=== PATIENT | female | born 1935 | race Caucasian/White ===

== ENCOUNTER → 2017-03-24 | Outpatient (CLI) | payer MEDICARE, OTHER ==
[~2017-03-24] MED LIST: AC325T PO; APIX5TAB2 PO; ASP81TEC PO; CRAN1TAB PO; DLT120CCR PO; ENAL10TA PO; ENLP10T; ESTR0.3T PO; METO-272 PO; METO100T5 PO; METO50TA7; MULT-608 PO; NF-ESOM40C PO; OXYC-12 PO; SMV20T PO; [UNRECOGNIZED DRUG - CODE]
--- NOTE | 2017-03-25 11:19 | ECHOCARDIOGRAPHY REPORT ---
DATE OF SERVICE: 03/24/2017 REFERRING PHYSICIAN: Dr. Blanca MEASUREMENT: LVID end diastolic 4.3, IVS thickness 0.9, LVPW thickness 1.1, left atrial diameter 4.0, ejection fraction 60%. FINDINGS: 1. Technical quality is good. 2. The left ventricle is normal in size with normal contractility, systolic function appeared to be normal, estimated ejection fraction 60%. 3. The left atrium is upper normal limit in size. No clot or thrombus were seen within the left atrium. 4. The right atrium and right ventricle are normal in size. No clot or thrombus were seen within the right side. 5. Mitral valve is calcified with moderate mitral regurgitation noted by color Doppler flow. No mitral valve prolapse. No mitral valve stenosis. 6. Aortic valve is trileaflet with normal opening and closing pattern. No significant aortic stenosis or regurgitation was seen. 7. Tricuspid valve is normal in morphology with moderate tricuspid regurgitation noted by color Doppler flow. Doppler across tricuspid valve estimated pulmonary artery pressure of 34+ right atrial pressure. 8. Pulmonic valve is functioning normally. 9. No pericardial effusion. CONCLUSION: 1. Normal left ventricular size and systolic function, estimated ejection fraction 60%. 2. Left atrium is in the upper normal limit in size. 3. Moderate mitral and tricuspid regurgitation. 4. Estimated pulmonary artery pressure of 40 mmHg. Job ID: [id number] DocumentID: [id number] Dictated Date: 03/25/2017 08:09:18 [employer] [place] Operator Date: 03/25/2017 08:19:52 Dictated By: JYOTI SOMMER MD
== END ==
LOC: CARD 10:35
PROVIDERS: ATTEND Physician Assistant
DX: I10 Essential (primary) hypertension (principal); E78.2 Mixed hyperlipidemia; I48.0 Paroxysmal atrial fibrillation; I47.1 Supraventricular tachycardia
CPT/HCPCS: 93306

== ENCOUNTER 2017-05-21 12:54 | Outpatient (CLI) | payer MEDICARE, OTHER ==
[~2017-05-21] VITALS: Ht 175.3 cm; Wt 99.1 kg
[2017-05-21] MEDS ORDERED: METO-352 PO (13:10)
[2017-05-21] MEDS ORDERED: ESTR0.3T PO (13:10)
[2017-05-21] MEDS ORDERED: DILT120C PO (13:10)
[2017-05-21] MEDS ORDERED: APIX5TAB PO (13:10)
[2017-05-21 13:15] VITALS: BP 126/71
== END 2017-05-21 14:00 | disposition home or self-care (01) ==
LOC: PREOP 12:54
PROVIDERS: ATTEND Orthopaedic Surgery
DX: Z01.810 Encounter for preprocedural cardiovascular examination (principal); Z11.2 Encounter for screening for other bacterial diseases; M94.262 Chondromalacia, left knee
CPT/HCPCS: 87081; 93005

== ENCOUNTER 2017-05-27 10:40 | Day surgery (SDC) | payer MEDICARE, OTHER ==
--- NOTE | 2017-05-18 13:07 | HISTORY AND PHYSICAL ---
DATE OF ADMISSION: 05/27/2017 This will be for outpatient surgery for left knee arthroscopy. HISTORY: The patient is an 81-year-old female with complaints of left knee pain, catching, locking and swelling. She reports pain with activities. She has undergone treatment with injections without relief. She reports activity limitations because of the knee. Due to functional impairment and failure to improve with conservative measures, the patient has elected to proceed with surgical intervention. REVIEW OF SYSTEMS: No chest pain, no shortness of breath. No dysuria. PRIMARY CARE PROVIDER: Dr. Blanca. MEDICATIONS: 1. Premarin 2. Simvastatin 3. Toprol 4. Eliquis 5. Cardizem 6. Ambien 7. Nexium 8. Meclizine DRUG ALLERGIES: No known drug allergies. SOCIAL HISTORY: The patient denies alcohol and tobacco use. PAST SURGERIES: Total knee arthroplasty. PAST MEDICAL HISTORY: Significant for: 1. Hypercholesterolemia. 2. Hypertension. PHYSICAL EXAMINATION: The patient's well-developed, well-nourished, in no acute distress. HEENT: Normocephalic, atraumatic. Pupils are equal, round, and reactive to light. OROPHARYNX: Clear. NECK: Supple. No lymphadenopathy. LUNGS: Clear to auscultation bilaterally. HEART: Regular rate and rhythm. ABDOMEN: Soft, nontender, nondistended. EXTREMITY EXAM: The left knee demonstrates a moderate effusion. She is tender along her medial joint line and has pain medially with Nolvia's. She has negative Sia. Negative anterior posterior drawer. No varus valgus laxity. Negative pivot shift. Range of motion is 0/2/130. RADIOLOGY: Radiographs reveal moderate medial joint space narrowing. 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 PLAN: Left knee arthroscopy, chondroplasty and partial meniscectomy. The risks, benefits, options, ramifications and recovery have been discussed at length with the patient. She understands and wishes to proceed. Job ID: [id number] Dictated Date: 05/18/2017 11:30:03 Gemologist Date: 05/18/2017 12:53:58/tbkaylah
[~2017-05-27] VITALS: Ht 175.3 cm; Wt 99.1 kg
[~2017-05-27 10:40] MED LIST changes: +APIX5TAB PO; +DILT120C PO; +METO-352 PO
[2017-05-27] MEDS ORDERED: ceFAZolin 1,000 MG (ANCEF) VIAL ONE (10:41)
[2017-05-27] MEDS ORDERED: NS (IVPB) 50 ML ONE (10:41)
--- OUTSIDE RECORDS SUMMARY | 2017-05-27 10:47 | XMS REPORT | Continuity of Care Document ---
Author Author [facility] Organization [facility] Address Unknown Phone Unavailable Allergies Active Description Code Type Severity Reaction Onset Reported/Identified Relationship to Patient Clinical Status Yes NKANo Known Allergies NKA Miscellaneous Allergy Mild N/A 01/11/2008 Yes No Known Drug Allergies [id number] Drug Allergy Unknown N/ A 05/21/2017 Medications Problems Date Dx Coded Attending Type Code Diagnosis Diagnosed By 04/06/2014 NIRMAL CISNEROS DO Ot 272.4 HYPERLIPIDEMIA NEC/NOS 04/06/2014 NIRMAL CISNEROS DO Ot 401.9 HYPERTENSION NOS 04/06/2014 NIRMAL CISNEROS DO Ot 427.31 ATRIAL FIBRILLATION 11/06/2014 MICHAEL CARSON DO S Ot V76.12 08/01/2015 MICHAEL CARSON DO S Ot V76.12 08/01/2015 ANNIE HOSKINS Ot 272.4 08/01/2015 ANNIE HOSKINS Ot 401.9 08/01/2015 ANNIE HOSKINS Ot 427.0 08/01/2015 ANNIE HOSKINS Ot 427.31 08/01/2015 ANNIE HOSKINS Ot 401.9 08/01/2015 ANNIE HOSKINS Ot 427.0 08/01/2015 ANNIE HOSKINS K Ot 427.31 08/01/2015 ALLI RICKS S Ot V76.12 11/14/2015 ALLI RICKS S Ot Z12.31 12/04/2015 ALLI RICKS S Ot V76.12 12/04/2015 ANNIE HOSKINS Ot 272.4 12/04/2015 ANNIE HOSKINS Ot 401.9 12/04/2015 ANNIE HOSKINS Ot 427.0 12/04/2015 ANNIE HOSKINS Ot 427.31 12/04/2015 ISABELLA PA, ANNIE K Ot 401.9 12/04/2015 ISABELLA PA, ANNIE K Ot 427.0 12/04/2015 ISABELLA PA, ANNIE K Ot 427.31 12/04/2015 ALLI RICKS S Ot V76.12 12/04/2015 ANDREWECH DO, S Ot Z12.31 08/15/2016 [facility] DO, S Ot V76.12 OTH SCREEN MAMMO-MALIGN NEOPLASM OF CYRUS 08/15/2016 ISABELLA PA, ANNIE K Ot 272.4 HYPERLIPIDEMIA NEC/NOS 08/15/2016 ISABELLA PA, ANNIE K Ot 401.9 HYPERTENSION NOS 08/15/2016 ISABELLA PA, ANNIE K Ot 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 08/15/2016 ISABELLA PA, ANNIE K Ot 427.31 ATRIAL FIBRILLATION 08/15/2016 ISABELLA PA, ANNIE K Ot 401.9 HYPERTENSION NOS 08/15/2016 ISABELLA PA, ANNIE K Ot 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 08/15/2016 ISABELLA PA, ANNIE K Ot 427.31 ATRIAL FIBRILLATION 08/15/2016 ALLI DO, S Ot V76.12 OTH SCREEN MAMMO-MALIGN NEOPLASM OF CYRUS 08/15/2016 [facility] DO, S Ot Z12.31 ENCNTR SCREEN MAMMOGRAM FOR MALIGNANT NE 10/20/2016 Ot V76.12 OTH SCREEN MAMMO-MALIGN NEOPLASM OF CYRUS 10/20/2016 Ot V76.12 OTH SCREEN MAMMO-MALIGN NEOPLASM OF CYRUS 10/20/2016 [facility] DO S Ot V76.12 OTH SCREEN MAMMO-MALIGN NEOPLASM OF CYRUS 10/20/2016 ISABELLA PA, ANNIE K Ot 272.4 HYPERLIPIDEMIA NEC/NOS 10/20/2016 ISABELLA PA, ANNIE K Ot 401.9 HYPERTENSION NOS 10/20/2016 ISABELLA PA, ANNIE K Ot 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 10/20/2016 ISABELLA PA, ANNIE K Ot 427.31 ATRIAL FIBRILLATION 10/20/2016 ISABELLA PA, ANNIE K Ot 401.9 HYPERTENSION NOS 10/20/2016 ANNIE HOSKINS Ot 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 10/20/2016 ANNIE HOSKINS Ot 427.31 ATRIAL FIBRILLATION 10/20/2016 FENECH DO, S Ot V76.12 OTH SCREEN MAMMO-MALIGN NEOPLASM OF CYRUS 10/20/2016 FENECH DO, S Ot Z12.31 ENCNTR SCREEN MAMMOGRAM FOR MALIGNANT NE 10/20/2016 FENECH DO, S Ot Z12.31 ENCNTR SCREEN MAMMOGRAM FOR MALIGNANT NE 10/21/2016 FENECH DO, S Ot Z12.31 ENCNTR SCREEN MAMMOGRAM FOR MALIGNANT NE 10/21/2016 FENECH DO, S Ot Z12.31 ENCNTR SCREEN MAMMOGRAM FOR MALIGNANT NE 11/13/2016 FENECH DO, S Ot Z12.31 ENCNTR SCREEN MAMMOGRAM FOR MALIGNANT NE 03/26/2017 ANNIE HOSKINS Ot E78.2 MIXED HYPERLIPIDEMIA 03/26/2017 ANNIE HOSKINS Ot I10 ESSENTIAL (PRIMARY) HYPERTENSION 03/26/2017 ANNIE HOSKINS Ot I47.1 SUPRAVENTRICULAR TACHYCARDIA 03/26/2017 ANNIE HOSKINS Ot I48.0 PAROXYSMAL ATRIAL FIBRILLATION 04/27/2017 ANNIE HOSKINS Ot E78.2 MIXED HYPERLIPIDEMIA 04/27/2017 ANNIE HOSKINS Ot I10 ESSENTIAL (PRIMARY) HYPERTENSION 04/27/2017 ANNIE HOSKINS Ot I47.1 SUPRAVENTRICULAR TACHYCARDIA 04/27/2017 ANNIE HOSKINS Ot I48.0 PAROXYSMAL ATRIAL FIBRILLATION 05/04/2017 ANNIE HOSKINS Ot E78.2 MIXED HYPERLIPIDEMIA 05/04/2017 ANNIE HOSKINS Ot I10 ESSENTIAL (PRIMARY) HYPERTENSION 05/04/2017 ANNIE HOSKINS Ot I47.1 SUPRAVENTRICULAR TACHYCARDIA 05/04/2017 ANNIE HOSKINS K Ot I48.0 PAROXYSMAL ATRIAL FIBRILLATION Procedures Results Test Result Range Methicillin resistant Staphylococcus aureus (MRSA) screening culture - 13:50 Methicillin resistant Staphylococcus aureus (MRSA) screening culture NEG NRG Encounters ACCT No. Visit Date/Time Discharge Status Pt. Type Provider Facility Loc./Unit Complaint [id number] 05/21/2017 12:54:00 2016 14:00:00 DIS Outpatient MICHAEL DESHPANDE MD [facility] PREOP LEFT KNEE CHONDROMALACIA [id number] 10/17/2015 15:32:00 2014 23:59:59 CLS Outpatient MICHAEL CARSON DO [facility] RAD SCREENING [id number] 10/11/2014 10:45:00 2013 23:59:59 CLS Outpatient MICHAEL CARSON DO [facility] RAD SCREENING [id number] 05/15/2014 07:29:00 2013 23:59:59 CLS Outpatient ANNIE HOSKINS [facility] CARD AFIB,HTN,HLP,PAT [id number] 05/11/2014 07:15:00 2013 23:59:59 CLS Outpatient ANNIE HOSKINS [facility] CARD AFIB,HTN,HLP [id number] 04/05/2014 14:52:00 2013 11:20:00 DIS Inpatient NIRMAL CISNEROS DO [facility] CSD QUICK AFIB [id number] 10/10/2013 08:54:00 2012 23:59:59 CLS Outpatient MICHAEL CARSON DO [facility] RAD SCREENING [id number] 05/27/2017 10:15:00 PEN Preadmit MICHAEL DESHPANDE MD [facility] SDC LEFT KNEE CHONDROMALACIA [id number] 03/24/2017 10:35:00 ACT Outpatient ANNIE NEFF [facility] CARD HTN,HYPERLIPIDEMIA [id number] 10/20/2016 15:03:00 ACT Outpatient MICHAEL CARSON DO [facility] RAD SCREENING [id number] 10/20/2016 15:03:00 Document Registration [id number] 10/04/2012 09:18:00 Document Registration [id number] 10/03/2011 08:40:00 Document Registration
[2017-05-27 10:55] VITALS: BP 145/82
[2017-05-27] MEDS ORDERED: LACTATED RINGERS 1,000 ML IV PRN (11:09)
[2017-05-27] MEDS ORDERED: ceFAZolin 1 GM/NS 50 ML IVPB IV ONE ×2 (11:15)
[2017-05-27] MEDS ORDERED: CATHETER FLUSH 10 ML SYR IV PRN (11:15)
--- NOTE | 2017-05-27 11:38 | Progress Note-Pre Operative ---
Pre-Operative Progress Note H&P Reviewed The H&P was reviewed, patient examined and no changes noted. Date Seen by Provider: May 27, 2017 Time Seen by Provider: 11:37 Date H&P Reviewed: May 27, 2017 Time H&P Reviewed: 11:37 Pre-Operative Diagnosis: left knee chondromalacia and medial meniscal tear MICHAEL DESHPANDE MD May 27, 2017 11:38
--- NOTE | 2017-05-27 11:39 | Progress Note-Post Operative ---
Post-Operative Progess Note Surgeon (s)/Furniture Shampooer (s) Surgeon MICHAEL DESHPANDE MD Furniture Shampooer: Micheal Landeros Pre-Operative Diagnosis left knee chondromalacia and medial meniscal tear Post-Operative Diagnosis left knee chondromalacia of medial and lateral tibial plateaus and medial and lateral meniscal tears Procedure & Operative Findings Date of Procedure 05/27/17 Procedure Performed/Findings left knee arthroscopic chondroplasty of the medial and lateral tibial plateaus and partial medial and lateral meniscectomies Anesthesia Type GETA Estimated Blood Loss Estimated blood loss (mL): minimal Specimens/Packing Specimens Removed none Packing: none MICHAEL DESHPANDE MD May 27, 2017 11:39
[2017-05-27] MEDS ORDERED: BUPIVACAINE 0.25% 30 ML (SENSORCAINE) VIAL ONE (12:25)
[2017-05-27] MEDS ORDERED: morphine PF (DURAMORPH) 10 MG/10 ML AMP ONE (12:25)
[2017-05-27] MEDS ORDERED: LACTATED RINGERS 1,000 ML IV ONE (12:39)
[2017-05-27] MEDS ORDERED: ONDANSETRON 4 MG/2 ML (SDV) Z0FRAN ONE (12:39)
[2017-05-27] MEDS ORDERED: proPOfol 200 MG/20 ML (DIPRIVAN) VIAL IV ONE (12:39)
[2017-05-27] MEDS ORDERED: LIDOCAINE PF 2% 5 ML (XYLOCAINE) VIAL ONE (12:39)
[2017-05-27] MEDS ORDERED: SEVOFLURANE (ULTANE) 15 ML INHAL SOLN ONE (12:39)
[2017-05-27] MEDS ORDERED: fentaNYL INJECTION 100 MCG/2 ML AMP ONE (12:40)
[2017-05-27] MEDS ORDERED: MIDAZOLAM 2 MG/2 ML (VERSED) VIAL ONE (12:40)
[2017-05-27] MEDS ORDERED: HYDROcodone/APAP 7.5 MG/325 MG (LORTAB, LORCET PLUS) TABLET PO PRN (13:00)
[2017-05-27] MEDS ORDERED: HYDR-3816 PO (13:36)
[2017-05-27] MEDS ORDERED: morphine INJ 10 MG/ML 1ML (SYR OR VIAL) IVP PRN (13:45)
[2017-05-27] MEDS ORDERED: ONDANSETRON 4 MG/2 ML (SDV) Z0FRAN IVP PRN (13:45)
[2017-05-27 14:30] VITALS: BP 141/85
[2017-05-27 15:00] VITALS: BP 122/66
[2017-05-27 15:20] VITALS: BP 122/66
[2017-05-27 15:30] VITALS: BP 155/81
--- NOTE | 2017-05-27 15:35 | Physical Therapy Ortho Eval ---
PT Orthopedic Evaluation Type of Surgery Knee Scope left knee Prior Level of Function Current Living Status: Spouse Locomotion (Upon Admit): Independent Established Durable Medical Eq: Front Wheeled Walker Subjective Subjective Patient has pain of 1-2/10 in left knee. She is already dressed and has started ambulating toward the bathroom from her bed with her when PT enters the room. Entry Into Home: Stairs Without Railing Steps Into Home: 3 Objective Objective left knee flexion 80 degrees, extension +8 degrees Motor Control Motor Control: Motor Control WNL Strength NT Transfer Transfers (B, C, W/C) (FIM): 5 Gait Gait Assistive Device: FWW Weight Bearing Restriction: Weight Bearing/Tolerated Location Restriction: L LE Gait (FIM): 2 Distance: 100' Gait Level of Assist: 5 Summary/Comments slow but steady, flexed left knee. Patient also went up and down 1 step using a rolling walker with CGA. Treatment Rendered Treatment: Therapeutic Exercises, Gait Train, Step Train Exercise Instruction: Quad Sets, Heel Slides, Ankle Pumps Assessment/Goals Goal Time Frame: 1 Visit Plan Treatment Plan: Discharge PT/Family Agrees to Plan: Yes Time Time In: 1515 Time Out: 1530 Total Billed Treatment Time: 15 Billed Treatment Time 1 visit EVL 15' Yes PT/OT Therapy GCodes Therapy Functional Limitation: Physical Therapy Test(s)/Tool used to determine: Level of Assistance Scale Functional Limitation-Current Charge Code: MOBCUR Modifier: CI Functional Limitation-Goal Charge Code: MOBGOAL Modifier: CI Functional Limitation-D/C Charge Codes: MOBDC Modifier: CI LIT BELL PT May 27, 2017 15:35
--- NOTE | 2017-05-29 08:34 | OPERATIVE REPORT ---
PROCEDURE PHYSICIAN: MICHAEL DESHPANDE DATE OF PROCEDURE: 05/27/2017 PREOPERATIVE DIAGNOSIS: 1. Left knee medial meniscal tear. 2. Left knee chondromalacia of the medial femoral condyle. POSTOPERATIVE DIAGNOSES: 1. Left knee lateral meniscal tear. 2. 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 3. Left knee chondromalacia of the lateral tibial plateau. PROCEDURE: 1. Left knee arthroscopic partial medial meniscectomy. 2. Left knee arthroscopic partial lateral meniscectomy. 3. Left knee arthroscopic chondroplasty of the medial tibial plateau. 4. Left knee arthroscopic chondroplasty of the lateral tibial plateau. SURGEON: Linda SYS DIR: Micheal Landeros who assisted throughout the procedure and closed the incisions. ANESTHESIA: General endotracheal by Phill Dotson CRNA. TOURNIQUET TIME: Not applicable. ESTIMATED BLOOD LOSS: Minimal. DRAINS: None. COMPLICATIONS: None. POSTOPERATIVE PLAN: Postoperative protocol. The patient was transported to the recovery room, awake, in stable condition. STATEMENT OF MEDICAL NECESSITY: The patient is an 81-year-old female with progressively worsening left medial knee pain, catching, locking and swelling. She is tender along her medial joint line. She had pain medially with Nolvia's. Radiographs revealed mild medial joint space narrowing with medial meniscal tear with associated chondromalacia and due to functional impairment, the patient elected to proceed with surgical intervention for functional impairment and failure with conservative measures, the patient elected to proceed with surgical intervention. Examination under anesthesia revealed range of motion of 0/2/130 with negative Sia, negative pivot shift. Negative anterior posterior drawer. No varus valgus laxity. Arthroscopic findings demonstrated grade 4 chondral loss on the medial trochlear groove in a 10 x 15 area. The patella demonstrated diffuse grade 2 to 3 chondral loss centrally in a 10 x 10 area with no unstable chondral flaps. The lateral compartment demonstrated a tear of the body of the meniscus around approximately 30% of the body. With associated grade 2 chondral flaps in tibial plateau in a 10 x 10 area. The ACL and PCL were intact. The medial compartment demonstrated a tear of the posterior horn and body of the meniscus involving approximately one half of the posterior horn and body. In addition, there was grade 3 chondral flaps over the central portion of tibial plateau in a 10 x 10 area. PROCEDURE: After risks and benefits of the procedure were discussed and questions were answered, informed consent signed and placed on chart. The operative site was confirmed in the preoperative holding area and initialed by the surgeon. The patient was then transported to the operating room where after adequate levels of general endotracheal anesthetic were obtained a timeout was called confirming the operative site. Examination under anesthesia was performed with the above findings noted. The left lower extremity was prepped and draped usual sterile fashion. The knee joint was injected with 60 mL of fluid and a standard inferolateral portal was placed for the arthroscope and under direct visualization an inferomedial port was created and the menisci cruciate was carefully probed with the above findings noted. The unstable chondral flaps on the lateral tibial plateau were debrided with a shaver back to a stable edge. The body of the lateral meniscus was debrided with a biter and with a shaver, removing approximately 1/3rd of the body. This was carefully probed with no further tearing or instability noted. The scope was redirected to the medial compartment where the unstable chondral flaps of the medial tibial plateau were debrided with a shaver, back to a stable edge. The posterior horn and body of the medial meniscus were debrided with a biter and a shaver, removing approximately one half of the posterior horn and body. This was carefully probed with no further tearing or instability noted. The knee was copiously irrigated. The portal sites closed with 3-0 nylon in a simple interrupted fashion. The knee was injected with Duramorph. The portal sites were infiltrated with plain Marcaine. A soft dressing was applied and the patient was transported to the recovery room, awake, in stable condition. Job ID: [id number] Dictated Date: 05/27/2017 13:42:08 Band Shover Date: 05/29/2017 08:20:11 / sweetie
== END 2017-05-27 15:34 | disposition home or self-care (01) ==
LOC: SDC 10:40
PROVIDERS: ATTEND Orthopaedic Surgery
DX: M23.8X2 Other internal derangements of left knee (principal); M94.262 Chondromalacia, left knee; I10 Essential (primary) hypertension; E78.00 Pure hypercholesterolemia, unspecified; I48.91 Unspecified atrial fibrillation; Z79.899 Other long term (current) drug therapy; E66.9 Obesity, unspecified; Z68.32 Body mass index [BMI] 32.0-32.9, adult

== ENCOUNTER → 2017-11-02 | Outpatient (CLI) | payer MEDICARE, OTHER ==
[~2017-11-02] MED LIST changes: +DILT-27 PO; -DILT120C PO; +HYDR-3816 PO
--- NOTE | 2017-11-03 11:42 | Diagnostic Imaging Report ---
EXAMINATION: Bilateral screening mammogram 2D views with tomosynthesis. The current study was also evaluated with a Computer Aided Detection (CAD) system. INDICATION: Screening. PERSONAL HISTORY: No current complaints stated on the questionnaire. COMPARISON: 10/20/2016. FINDINGS: The breasts are composed of heterogeneously dense parenchyma which may decrease mammographic sensitivity. There are benign-appearing calcifications seen. Allowing for technique and positional differences, no suspicious change is seen. IMPRESSION: Dense breasts with no definite change. ACR BI-RADS Category 2: Benign findings. Result letter will be mailed to the patient. Note: At least 10% of breast cancer is not imaged by mammography. Dictated by: Dictated on workstation # [id number]
== END ==
LOC: RAD 14:15
PROVIDERS: ATTEND Obstetrics & Gynecology
DX: Z12.31 Encounter for screening mammogram for malignant neoplasm of breast (principal)
CPT/HCPCS: 77067

== ENCOUNTER → 2017-11-23 | Outpatient (CLI) | payer MEDICARE, OTHER ==
[~2017-11-23] MED LIST changes: +CRAN1CAP9 PO; +MULT1CAP27 PO; +REGADENOSON 0.4 MG/5 ML SYR (LEXISCAN) IV ONE; +SIMV20TA3 PO
[2017-11-23] MEDS: CATHETER FLUSH 10 ML SYR IV PRN ×2 (07:49→09:02)
[2017-11-23 09:00] VITALS: BP 161/86
--- NOTE | 2017-11-23 19:33 | STRESS TEST ---
DATE OF SERVICE: 11/23/2017 LEXISCAN MYOVIEW STRESS TEST REPORT REFERRING PHYSICIAN: . Baseline heart rate is 85, baseline blood pressure 160/80. Baseline EKG is atrial fibrillation with no significant ischemia. In summary, the patient was injected with 10.95 mCi of technetium-99 Myoview and the resting images were obtained. Then, the patient received 0.4 mg of Lexiscan followed by 30.8 mCi of technetium-99 Myoview. Throughout the test, there were no EKG changes. The resting and stress images were reviewed and compared in the short axis, horizontal long axis, and vertical long axis views. Review of the images showed breast attenuation with decreased uptake at the base of the anterior wall and anterolateral wall with no significant reversibility. SSS is 7, SDS 3, TID value 1.01. On the gated images, the left ventricle appeared to be normal size with normal contractility. Calculated ejection is fraction 71%. CONCLUSION: 1. The patient tolerated Lexiscan well. 2. Baseline atrial fibrillation persisted throughout test. 3. Breast attenuation with typical female pattern with no significant ischemia or infarction on SPECT images. 4. Normal left ventricular size with normal contractility. Calculated ejection fraction 71%, gated images are unreliable due to underlying atrial fibrillation. Job ID: [id number] DocumentID: [id number] Dictated Date: 11/23/2017 12:21:21 Ice Hockey Coach Date: 11/23/2017 18:22:14 Dictated By: JYOTI SOMMER MD
== END ==
LOC: CARD 07:20
PROVIDERS: ATTEND Internal Medicine Cardiovascular Disease
DX: I10 Essential (primary) hypertension (principal); E78.2 Mixed hyperlipidemia; I48.0 Paroxysmal atrial fibrillation; I47.1 Supraventricular tachycardia
CPT/HCPCS: 78452; 93017

== ENCOUNTER 2017-11-25 05:37 | Outpatient (CLI) | payer MEDICARE, OTHER ==
[~2017-11-25] VITALS: Ht 175.3 cm; Wt 99.1 kg
[~2017-11-25 05:37] MED LIST changes: -CRAN1CAP9 PO; -MULT1CAP27 PO; -REGADENOSON 0.4 MG/5 ML SYR (LEXISCAN) IV ONE; -SIMV20TA3 PO
[2017-11-25] MEDS ORDERED: SIMV20TA3 PO (09:53)
[2017-11-25] MEDS ORDERED: NF-ESOM40C PO (09:53)
[2017-11-25] MEDS ORDERED: CRAN1CAP9 PO (09:53)
[2017-11-25] MEDS ORDERED: MULT1CAP27 PO (09:53)
== END 2017-11-25 09:59 ==
LOC: PREOP 05:37
PROVIDERS: ATTEND Surgery
DX: Z01.818 Encounter for other preprocedural examination (principal); Z12.11 Encounter for screening for malignant neoplasm of colon

== ENCOUNTER → 2018-06-16 | Outpatient (CLI) | payer MEDICARE, OTHER ==
[~2018-06-16] MED LIST changes: +CRAN1CAP9 PO; +HYDR-34 PO; -HYDR-3816 PO; +MULT1CAP27 PO; +SIMV20TA3 PO
--- NOTE | 2018-06-16 10:55 | Diagnostic Imaging Report ---
PROCEDURE: MRI lumbar spine. TECHNIQUE: Multiplanar, multisequence MRI of the lumbar spine was performed without contrast. INDICATION: Low back pain. COMPARISON: No prior studies are available for comparison. FINDINGS: Curvature and alignment of the lumbar spine is normal. The vertebral body heights are maintained. The marrow signal intensity is unremarkable. No acute compression fracture or geographic marrow lesion is seen. There is some desiccation of the discs throughout the lumbar spine compatible with degenerative disc disease. No significant disc space narrowing is seen. There is very mild disc space narrowing L3-4 and L2-3 levels. The conus is unremarkable at the L1-2 level. T12-L1: No central canal or neural foraminal stenosis is identified. L1-2: Unremarkable. L2-3: Mild annular bulging is seen. Central canal remains patent. No neural foraminal stenosis is seen. There are degenerative changes to the facets. L3-4: Degenerative facet changes and mild broad-based disc/osteophyte complex is present. However, no central canal stenosis is seen. There is mild left neural foraminal stenosis. Right neural foramen is patent. L4-5: Bulky hypertrophic facet changes are seen. Central canal is patent. No neural foraminal stenosis is identified. L5-S1: Central canal is widely patent. There is moderate right neural foraminal stenosis. Left neural foramen is patent. The paraspinous tissues are unremarkable. IMPRESSION: Generalized lumbar spondylosis and facet arthropathy with mild to moderate neural foraminal narrowing described level by level above. No central canal stenosis is seen. No acute compression fracture is identified. Dictated by: Dictated on workstation # [id number]
== END ==
LOC: RAD 09:43
PROVIDERS: ATTEND Orthopaedic Surgery
DX: M51.16 Intervertebral disc disorders with radiculopathy, lumbar region (principal); M47.26 Other spondylosis with radiculopathy, lumbar region; M46.86 Other specified inflammatory spondylopathies, lumbar region; M99.73 Connective tissue and disc stenosis of intervertebral foramina of lumbar region
CPT/HCPCS: 72148

== ENCOUNTER → 2018-11-05 | Outpatient (CLI) | payer MEDICARE, OTHER ==
--- NOTE | 2018-11-05 15:59 | Diagnostic Imaging Report ---
INDICATION: Routine screening. COMPARISON: Prior mammograms from 11/02/2017 and 10/20/2016. EXAMINATION: 2D and 3D bilateral screening mammography was performed with CAD. The current study was also evaluated with a Computer Aided Detection (CAD) system. FINDINGS: Both breasts remain heterogeneously dense, limiting the sensitivity of mammography. The parenchymal pattern appears stable. Benign nodule in the central left breast is stable. There are scattered benign calcifications. No new mass or malignant appearing microcalcifications are seen. The axillae are unremarkable. IMPRESSION: No mammographic features suspicious for malignancy are identified. ACR BI-RADS Category 2: Benign findings. Result letter will be mailed to the patient. Note: At least 10% of breast cancer is not imaged by mammography. Dictated on workstation # [id number]
== END ==
LOC: RAD 08:18
PROVIDERS: ATTEND Obstetrics & Gynecology
DX: Z12.31 Encounter for screening mammogram for malignant neoplasm of breast (principal)
CPT/HCPCS: 77067

== ENCOUNTER 2019-02-15 09:41 | Outpatient (CLI) | payer MEDICARE, OTHER ==
[~2019-02-15] VITALS: Ht 175.3 cm; Wt 102.1 kg
[2019-02-15 09:59] VITALS: BP 140/71
== END 2019-02-15 10:43 | disposition home or self-care (01) ==
LOC: PREOP 09:41
PROVIDERS: ATTEND Orthopaedic Surgery
DX: Z01.818 Encounter for other preprocedural examination (principal)
CPT/HCPCS: 87081

== ENCOUNTER 2019-02-23 07:26 | Day surgery (SDC) | payer MEDICARE, OTHER ==
--- NOTE | 2019-02-14 15:02 | HISTORY AND PHYSICAL ---
DATE OF SERVICE: 02/23/2019 DATE OF ADMISSION: 02/23/2019. DATE OF SURGERY: This will be outpatient surgery on 02/23/2019 for left knee arthroscopy. HISTORY OF PRESENT ILLNESS: The patient is an 83-year-old female with progressively worsening left knee pain. She had undergone multiple injections in the past with temporary relief of her symptoms. She reports catching and locking in the anterior aspect of her knee. She does not desire total knee arthroplasty due to mechanical symptoms. She has elected to proceed with arthroscopy. REVIEW OF SYSTEMS: No chest pain, no shortness of breath. No dysuria. PAST MEDICAL HISTORY: Hypertension, low back pain. PAST SURGICAL HISTORY: Right total knee arthroplasty, left shoulder arthroscopy. FAMILY HISTORY: Significant for diabetes, ischemic heart disease. PRIMARY CARE PROVIDER: Dr. Blanca. MEDICATIONS: Premarin, simvastatin, Toprol, Eliquis, Cardizem, Ambien, Nexium, meclizine. ALLERGIES: No known drug allergies. SOCIAL HISTORY: The patient denies alcohol, tobacco use. RADIOGRAPHS: Reveal moderate lateral patellofemoral joint space narrowing. PHYSICAL EXAMINATION: GENERAL: The patient is well-developed, well-nourished, in no acute distress. HEENT: Normocephalic, atraumatic. Pupils are equal, round, reactive to light. Oropharynx is clear. LUNGS: Clear to auscultation bilaterally. HEART: Regular rate and rhythm. ABDOMEN: Soft, nontender, nondistended. EXTREMITIES: The left knee demonstrates tenderness along the lateral joint line. She has slight effusion. She has pain laterally with Nolvia's. She has marked patellofemoral crepitus and pain with patellar loading. No varus or valgus laxity. Negative anterior and posterior drawer. IMPRESSION: Left knee chondromalacia with lateral meniscus tear. PLAN: Left knee arthroscopy with partial meniscectomy and chondroplasty. The risks and benefits, options, ramifications and the recovery were discussed at length with the patient. She understands and wished to proceed. Job ID: [id number] DocumentID: [id number] Dictated Date: 02/14/2019 11:09:59 Medical Staff Credentialing Coordinator Date: 02/14/2019 15:02:02 Dictated By: MICHAEL DESHPANDE MD
[~2019-02-23] VITALS: Ht 175.3 cm; Wt 102.1 kg
[2019-02-23] MEDS ORDERED: BUPIVACAINE 0.25% 30 ML (SENSORCAINE) VIAL ONE (07:31)
[2019-02-23] MEDS ORDERED: morphine PF (DURAMORPH) 10 MG/10 ML AMP ONE (07:31)
[2019-02-23] MEDS ORDERED: proPOfol 200 MG/20 ML (DIPRIVAN) VIAL IV ONE (07:32)
[2019-02-23] MEDS ORDERED: MIDAZOLAM 2 MG/2 ML (VERSED) VIAL ONE (07:32)
[2019-02-23] MEDS ORDERED: DEXAMETHASONE 10 MG/ML (DECADRON) 1 ML VIAL ONE (07:32)
[2019-02-23] MEDS ORDERED: LIDOCAINE PF 2% 5 ML (XYLOCAINE) VIAL ONE (07:32)
[2019-02-23] MEDS ORDERED: SEVOFLURANE (ULTANE) 15 ML INHAL SOLN ONE ×2 (07:32→08:26)
[2019-02-23] MEDS ORDERED: ONDANSETRON 4 MG/2 ML (SDV) Z0FRAN ONE (07:32)
[2019-02-23 07:40] VITALS: BP 165/97
[2019-02-23] MEDS ORDERED: fentaNYL INJECTION 100 MCG/2 ML AMP ONE (07:41)
[2019-02-23] MEDS ORDERED: ceFAZolin INJECTION 1,000 MG ONE (07:42)
--- NOTE | 2019-02-23 07:44 | Progress Note-Pre Operative ---
Pre-Operative Progress Note H&P Reviewed The H&P was reviewed, patient examined and no changes noted. 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
[2019-02-23] MEDS ORDERED: HYDROcodone/APAP 7.5 MG/325 MG (LORTAB, LORCET PLUS) TABLET PO PRN (07:45)
--- NOTE | 2019-02-23 07:45 | Progress Note-Post Operative ---
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
[2019-02-23] MEDS ORDERED: LACTATED RINGERS 1,000 ML IV PRN (07:54)
[2019-02-23] MEDS ORDERED: ceFAZolin INJECTION 1,000 MG in WATER (STERILE) FOR INJECTION 10 ML IV ONE (08:00)
--- OUTSIDE RECORDS SUMMARY | 2019-02-23 08:20 | XMS REPORT | Continuity of Care Document ---
Author Organization Unknown Address Unknown Allergies Active Description Code Type Severity Reaction Onset Reported/Identified Relationship to Patient Clinical Status Yes NKANo Known Allergies NKA Miscellaneous Allergy Mild N/A 01/11/2008 Yes No Known Drug Allergies [id number] Drug Allergy Unknown N/A 02/15/2019 Medications There is no data. Problems Date Dx Coded Attending Type Code [...] ANNIE HOSKINS K Ot 427.31 08/01/2015 ALLI DOMICHAEL S Ot V76.12 11/14/2015 ALLI DO S Ot Z12.31 12/04/2015 ALLI DO, S Ot V76.12 12/04/2015 ANNIE HOSKINS Ot 272.4 12/04/2015 ANNIE HOSKINS Ot 401.9 12/04/2015 ANNIE HOSKINS Ot 427.0 12/04/2015 ANNIE HOSKINS Ot 427.31 12/04/2015 ISABELLA PA, ANNIE K Ot 401.9 12/04/2015 ISABELLA PA, ANNIE K Ot 427.0 12/04/2015 ISABELLA NIEVES, ANNIE K Ot 427.31 12/04/2015 ALLI RICKS S Ot V76.12 12/04/2015 ALLI RICKS S Ot Z12.31 08/15/2016 [facility] S Ot V76.12 OTH SCREEN MAMMO-MALIGN NEOPLASM OF CYRUS 08/15/2016 NGUYỄNEDNA PA, ANNIE K Ot 272.4 HYPERLIPIDEMIA NEC/NOS 08/15/2016 NGUYỄN-MARIA DE JESUS PA, ANNIE K Ot 401.9 HYPERTENSION NOS 08/15/2016 GOPI-MARIA DE JESUS PA, ANNIE K Ot 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31 ENCNTR SCREEN MAMMOGRAM FOR MALIGNANT NE 11/13/2016 FENECH DO, S Ot Z12.31 ENCNTR SCREEN MAMMOGRAM FOR MALIGNANT NE 03/26/2017 ANNIE HOSKINS Ot E78.2 MIXED HYPERLIPIDEMIA 03/26/2017 ANNIE HOSKINS K Ot I10 ESSENTIAL (PRIMARY) HYPERTENSION 03/26/2017 ANNIE HOSKINS K Ot I47.1 SUPRAVENTRICULAR TACHYCARDIA 03/26/2017 ANNIE HOSKINS K Ot I48.0 PAROXYSMAL ATRIAL FIBRILLATION 04/27/2017 ANNIE HOSKINS K Ot E78.2 MIXED HYPERLIPIDEMIA 04/27/2017 ANNIE HOSKINS K Ot I10 ESSENTIAL (PRIMARY) HYPERTENSION 04/27/2017 ANNIE HOSKINS K Ot I47.1 SUPRAVENTRICULAR TACHYCARDIA 04/27/2017 ANNIE HOSKINS K Ot I48.0 PAROXYSMAL ATRIAL FIBRILLATION 05/04/2017 ANNIE HOSKINS K Ot E78.2 MIXED HYPERLIPIDEMIA 05/04/2017 [facility] K Ot I10 ESSENTIAL (PRIMARY) HYPERTENSION 05/04/2017 ANNIE HOSKINS K Ot I47.1 SUPRAVENTRICULAR TACHYCARDIA 05/04/2017 ANNIE HOSKINS K Ot I48.0 PAROXYSMAL ATRIAL FIBRILLATION 05/21/2017 JERAMY SCOTT, MICHAEL Gonzalez Ot M94.262 CHONDROMALACIA, LEFT KNEE 05/21/2017 JERAMY SCOTT, MICHAEL Gonzalez Ot Z01.810 ENCOUNTER FOR PREPROCEDURAL CARDIOVASCUL 05/21/2017 MICHAEL DESHPANDE MD Ot Z11.2 ENCOUNTER FOR SCREENING FOR OTHER BACTER 05/27/2017 MICHAEL DESHPANDE MD Ot E66.9 OBESITY, UNSPECIFIED 05/27/2017 MICHAEL DESHPANDE MD Ot E78.00 PURE HYPERCHOLESTEROLEMIA, UNSPECIFIED 05/27/2017 MICHAEL DESHPANDE MD Ot I10 ESSENTIAL (PRIMARY) HYPERTENSION 05/27/2017 MICHAEL DESHPANDE MD Ot I48.91 UNSPECIFIED ATRIAL FIBRILLATION 05/27/2017 MICHAEL DESHPANDE MD Ot M23.8X2 OTHER INTERNAL DERANGEMENTS OF LEFT KNEE 05/27/2017 MICHAEL DESHPANDE MD Ot M94.262 CHONDROMALACIA, LEFT KNEE 05/27/2017 MICHAEL DESHPANDE MD Ot Z68.32 BODY MASS INDEX (BMI) 32.0-32.9, ADULT 05/27/2017 MICHAEL DESHPANDE MD Ot Z79.899 OTHER SENIOR CARE (CURRENT) DRUG THERAPY 06/02/2017 MICHAEL DESHPANDE MD Ot E66.9 OBESITY, UNSPECIFIED 06/02/2017 MICHAEL DESHPANDE MD Ot E78.00 PURE HYPERCHOLESTEROLEMIA, UNSPECIFIED 06/02/2017 MICHAEL DESHPANDE MD Ot I10 ESSENTIAL (PRIMARY) HYPERTENSION 06/02/2017 MICHAEL DESHPANDE MD Ot I48.91 UNSPECIFIED ATRIAL FIBRILLATION 06/02/2017 MICHAEL DESHPANDE MD Ot M23.8X2 OTHER INTERNAL DERANGEMENTS OF LEFT KNEE 06/02/2017 MICHAEL DESHPANDE MD Ot M94.262 CHONDROMALACIA, LEFT KNEE 06/02/2017 MICHAEL DESHPANDE MD Ot Z68.32 BODY MASS INDEX (BMI) 32.0-32.9, ADULT 06/02/2017 MICHAEL DESHPANDE MD Ot Z79.899 OTHER MANAGER BOOK (CURRENT) DRUG THERAPY 06/05/2017 MICHAEL DESHPANDE MD Ot E66.9 OBESITY, UNSPECIFIED 06/05/2017 MICHAEL DESHPANDE MD Ot E78.00 PURE HYPERCHOLESTEROLEMIA, UNSPECIFIED 06/05/2017 MICHAEL DESHPANDE MD Ot I10 ESSENTIAL (PRIMARY) HYPERTENSION 06/05/2017 MICHAEL DESHPANDE MD Ot I48.91 UNSPECIFIED ATRIAL FIBRILLATION 06/05/2017 JERAMY SCOTT, MICHAEL Gonzalez Ot M23.8X2 OTHER INTERNAL DERANGEMENTS OF LEFT KNEE 06/05/2017 JERAMY SCOTT, MICHAEL Gonzalez Ot M94.262 CHONDROMALACIA, LEFT KNEE 06/05/2017 JERAMY SCOTT, MICHAEL Gonzalez Ot Z68.32 BODY MASS INDEX (BMI) 32.0-32.9, ADULT 06/05/2017 MICHAEL DESHPANDE MD Ot Z79.899 OTHER SENIOR CARE (CURRENT) DRUG THERAPY 08/20/2017 Ot V76.12 OTH SCREEN MAMMO-MALIGN NEOPLASM OF CYRUS 08/20/2017 MICHAEL CARSON DO S Ot V76.12 OTH SCREEN MAMMO-MALIGN NEOPLASM OF CYRUS 08/20/2017 ANNIE HOSKINS Ot 272.4 HYPERLIPIDEMIA NEC/NOS 08/20/2017 ANNIE HOSKINS Ot 401.9 HYPERTENSION NOS 08/20/2017 ANNIE HOSKINS Ot 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 08/20/2017 ANNIE HOSKINS Ot 427.31 ATRIAL FIBRILLATION 08/20/2017 ANNIE HOSKINS Ot 401.9 HYPERTENSION NOS 08/20/2017 ANNIE HOSKINS Ot 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 08/20/2017 ANNIE HOSKINS Ot 427.31 ATRIAL FIBRILLATION 08/20/2017 MICHAEL CARSON DO S Ot V76.12 OTH SCREEN MAMMO-MALIGN NEOPLASM OF CYRUS 08/20/2017 MICHAEL CARSON DO S Ot Z12.31 ENCNTR SCREEN MAMMOGRAM FOR MALIGNANT NE 08/20/2017 MICHAEL CARSON DO S Ot Z12.31 ENCNTR SCREEN MAMMOGRAM FOR MALIGNANT NE 08/20/2017 ANNIE HOSKINS Ot E78.2 MIXED HYPERLIPIDEMIA 08/20/2017 ANNIE HOSKINS Ot I10 ESSENTIAL (PRIMARY) HYPERTENSION 08/20/2017 ANNIE HOSKINS Ot I47.1 SUPRAVENTRICULAR TACHYCARDIA 08/20/2017 ANNIE HOSKINS Ot I48.0 PAROXYSMAL ATRIAL FIBRILLATION 08/24/2017 MICHAEL CARSON DO S Ot V76.12 OTH SCREEN MAMMO-MALIGN NEOPLASM OF CYRUS 08/24/2017 ISABELLA EZEQUIEL, ANNIE Guthrie Ot 272.4 HYPERLIPIDEMIA NEC/NOS 08/24/2017 NGUYỄN-MARIA DE JESUS NIEVESANNIE Ot 401.9 HYPERTENSION NOS 08/24/2017 KIERAMARIA DE JESUS NIEVES, ANNIE uGthrie Ot 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 08/24/2017 ISABELLA EZEQUIELSIMÓNTH K Ot 427.31 ATRIAL FIBRILLATION 08/24/2017 KIERAMARIA DE JESUS NIEVES ANNIE Guthrie Ot 401.9 HYPERTENSION NOS 08/24/2017 ISABELLA EZEQUIEL, ANNIE K Ot 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 08/24/2017 ISABELLA EZEQUIEL, ANNIE K Ot 427.31 ATRIAL FIBRILLATION 08/24/2017 ALLI RICKS S Ot V76.12 OTH SCREEN MAMMO-MALIGN NEOPLASM OF CYRUS 08/24/2017 ALLI RICKS S Ot Z12.31 ENCNTR SCREEN MAMMOGRAM FOR MALIGNANT NE 08/24/2017 ALLI RICKS S Ot Z12.31 ENCNTR SCREEN MAMMOGRAM FOR MALIGNANT NE 08/24/2017 KIERAMARIA DE JESUS NIEVES ANNIE Guthrie Ot E78.2 MIXED HYPERLIPIDEMIA 08/24/2017 NGUYỄNARLYN EZEQUIEL ANNIE Guthrie Ot I10 ESSENTIAL (PRIMARY) HYPERTENSION 08/24/2017 NGUYỄN-MARIA ED JESUS NIEVES ANNIE Guthrie Ot I47.1 SUPRAVENTRICULAR TACHYCARDIA 08/24/2017 NGUYỄNARLYN EZEQUIEL ANNIE Guthrie Ot I48.0 PAROXYSMAL ATRIAL FIBRILLATION 11/02/2017 SHANTELL JACKSON DO Ot Z12.31 ENCNTR SCREEN MAMMOGRAM FOR MALIGNANT NE 11/02/2017 ALLI RICKS S Ot V76.12 OTH SCREEN MAMMO-MALIGN NEOPLASM OF CYRUS 11/02/2017 ISABELLA EZEQUIEL ANNIE Guthrie Ot 272.4 HYPERLIPIDEMIA NEC/NOS 11/02/2017 NGUYỄN-MARIA DE JESUS NIEVESANNIE Ot 401.9 HYPERTENSION NOS 11/02/2017 NGUYỄN-MARIA DE JESUS NIEVES ANNIE Guthrie Ot 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 11/02/2017 NGUYỄN-MARIA DE JESUS NIEVES ANNIE Guthrie Ot 427.31 ATRIAL FIBRILLATION 11/02/2017 NGUYỄN-MARIA DE JESUS NIEVES ANNIE Guthrie Ot 401.9 HYPERTENSION NOS 11/02/2017 NGUYỄN-MARIA DE JESUS PAANNIE Ot 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 11/02/2017 ANNIE HOSKINS Ot 427.31 ATRIAL FIBRILLATION 11/02/2017 MICHAEL CARSON DO S Ot V76.12 OTH SCREEN MAMMO-MALIGN NEOPLASM OF CYRUS 11/02/2017 MICHAEL CARSON DO S Ot Z12.31 ENCNTR SCREEN MAMMOGRAM FOR MALIGNANT NE 11/02/2017 FENMICHAEL BARTHOLOMEW DO S Ot Z12.31 ENCNTR SCREEN MAMMOGRAM FOR MALIGNANT NE 11/02/2017 ANNIE HOSKINS Ot E78.2 MIXED HYPERLIPIDEMIA 11/02/2017 ANNIE HOSKINS Ot I10 ESSENTIAL (PRIMARY) HYPERTENSION 11/02/2017 ANNIE HOSKINS Ot I47.1 SUPRAVENTRICULAR TACHYCARDIA 11/02/2017 ANNIE HOSKINS Ot I48.0 PAROXYSMAL ATRIAL FIBRILLATION 11/02/2017 SHANTELL JACKSON DO, Ot Z12.31 ENCNTR SCREEN MAMMOGRAM FOR MALIGNANT NE 11/25/2017 PHILL VALENZUELA MD Ot Z01.818 ENCOUNTER FOR OTHER PREPROCEDURAL EXAMIN 11/25/2017 PHILL VALENZUELA MD Ot Z12.11 ENCOUNTER FOR SCREENING FOR MALIGNANT NE 11/29/2017 JYOTI SOMMER MD Ot E78.2 MIXED HYPERLIPIDEMIA 11/29/2017 JYOTI SOMMER MD Ot I10 ESSENTIAL (PRIMARY) HYPERTENSION 11/29/2017 JYOTI SOMMER MD Ot I47.1 SUPRAVENTRICULAR TACHYCARDIA 11/29/2017 JYOTI SOMMER MD Ot I48.0 PAROXYSMAL ATRIAL FIBRILLATION 12/01/2017 SHANTELL JACKSON DO, Ot Z12.31 ENCNTR SCREEN MAMMOGRAM FOR MALIGNANT NE 12/02/2017 PHILL VALENZUELA MD Ot D12.3 BENIGN NEOPLASM OF TRANSVERSE COLON 12/02/2017 PHILL VALENZUELA MD Ot E78.5 HYPERLIPIDEMIA, UNSPECIFIED 12/02/2017 PHILL VALENZUELA MD Ot I10 ESSENTIAL (PRIMARY) HYPERTENSION 12/02/2017 PHILL VALENZUELA MD Ot I48.91 UNSPECIFIED ATRIAL FIBRILLATION 12/02/2017 PHILL VALENZUELA MD Ot K21.9 GASTRO-ESOPHAGEAL REFLUX DISEASE WITHOUT 12/02/2017 KIDO MD, TAKAAKI Ot K57.30 DVRTCLOS OF LG INT W/O PERFORATION OR AB 12/02/2017 PHILL VALENZUELA MD, Ot K63.5 POLYP OF COLON 12/02/2017 PHILL VALENZUELA MD, Ot K64.1 SECOND DEGREE HEMORRHOIDS 12/02/2017 PHILL VALENZUELA MD, Ot Z12.11 ENCOUNTER FOR SCREENING FOR MALIGNANT NE 12/02/2017 PHILL VALENZUELA MD, Ot Z79.899 OTHER MANAGER BOOK (CURRENT) DRUG THERAPY 12/02/2017 PHILL VALENZUELA MD, Ot Z80.0 FAMILY HISTORY OF MALIGNANT NEOPLASM OF 12/07/2017 PHILL VALENZUELA MD Ot D12.3 BENIGN NEOPLASM OF TRANSVERSE COLON 12/07/2017 PHILL VALENZUELA MD Ot E78.5 HYPERLIPIDEMIA, UNSPECIFIED 12/07/2017 PHILL VALENZUELA MD Ot I10 ESSENTIAL (PRIMARY) HYPERTENSION 12/07/2017 PHILL VALENZUELA MD Ot I48.91 UNSPECIFIED ATRIAL FIBRILLATION 12/07/2017 PHILL VALENZUELA MD Ot K21.9 GASTRO-ESOPHAGEAL REFLUX DISEASE WITHOUT 12/07/2017 PHILL VALENZUELA MD Ot K57.30 DVRTCLOS OF LG INT W/O PERFORATION OR AB 12/07/2017 PHILL VALENZUELA MD, Ot K64.1 SECOND DEGREE HEMORRHOIDS 12/07/2017 PHILL VALENZUELA MD, Ot Z12.11 ENCOUNTER FOR SCREENING FOR MALIGNANT NE 12/07/2017 PHILL VALENZUELA MD, Ot Z79.899 OTHER MANAGER BOOK (CURRENT) DRUG THERAPY 12/07/2017 PHILL VALENZUELA MD, Ot Z80.0 FAMILY HISTORY OF MALIGNANT NEOPLASM OF 12/09/2017 PHILL VALENZUELA MD Ot D12.3 BENIGN NEOPLASM OF TRANSVERSE COLON 12/09/2017 PHILL VALENZUELA MD Ot E78.5 HYPERLIPIDEMIA, UNSPECIFIED 12/09/2017 PHILL VALENZUELA MD Ot I10 ESSENTIAL (PRIMARY) HYPERTENSION 12/09/2017 PHILL VALENZUELA MD Ot I48.91 UNSPECIFIED ATRIAL FIBRILLATION 12/09/2017 PHILL VALENZUELA MD Ot K21.9 GASTRO-ESOPHAGEAL REFLUX DISEASE WITHOUT 12/09/2017 PHILL VALENZUELA MD Ot K57.30 DVRTCLOS OF LG INT W/O PERFORATION OR AB 12/09/2017 PHILL VALENZUELA MD, Ot K64.1 SECOND DEGREE HEMORRHOIDS 12/09/2017 PHILL VALENZUELA MD, Ot Z12.11 ENCOUNTER FOR SCREENING FOR MALIGNANT NE 12/09/2017 PHILL VALENZUELA MD Ot Z79.899 OTHER SENIOR CARE (CURRENT) DRUG THERAPY 12/09/2017 PHILL VALENZUELA MD, Ot Z80.0 FAMILY HISTORY OF MALIGNANT NEOPLASM OF 12/10/2017 MICHAEL CARSON DO S Ot V76.12 OTH SCREEN MAMMO-MALIGN NEOPLASM OF CYRUS 12/10/2017 ISABELLA NIEVES ANNIE K Ot 272.4 HYPERLIPIDEMIA NEC/NOS 12/10/2017 ISABELLA NIEVES ANNIE K Ot 401.9 HYPERTENSION NOS 12/10/2017 ISABELLA NIEVES ANNIE K Ot 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 12/10/2017 ISABELLA NIEVES ANNIE K Ot 427.31 ATRIAL FIBRILLATION 12/10/2017 ISABELLA NIEVES ANNIE K Ot 401.9 HYPERTENSION NOS 12/10/2017 ISABELLA NIEVES ANNIE K Ot 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 12/10/2017 ISABELLA NIEVES ANNIE K Ot 427.31 ATRIAL FIBRILLATION 12/10/2017 ALLI DO S Ot V76.12 OTH SCREEN MAMMO-MALIGN NEOPLASM OF CYRUS 12/10/2017 ALLI DO S Ot Z12.31 ENCNTR SCREEN MAMMOGRAM FOR MALIGNANT NE 12/10/2017 ALLI RICKS S Ot Z12.31 ENCNTR SCREEN MAMMOGRAM FOR MALIGNANT NE 12/10/2017 ISABELLA NIEVES ANNIE K Ot E78.2 MIXED HYPERLIPIDEMIA 12/10/2017 ISABELLA NIEVES ANNIE K Ot I10 ESSENTIAL (PRIMARY) HYPERTENSION 12/10/2017 [facility] K Ot I47.1 SUPRAVENTRICULAR TACHYCARDIA 12/10/2017 [facility] K Ot I48.0 PAROXYSMAL ATRIAL FIBRILLATION 12/10/2017 KEMAL SCOTT, JYOTI Patrick Ot E78.2 MIXED HYPERLIPIDEMIA 12/10/2017 KEMAL SCOTT, JYOTI Patrick Ot I10 ESSENTIAL (PRIMARY) HYPERTENSION 12/10/2017 KEMAL SCOTT, JYOTI Patrick Ot I47.1 SUPRAVENTRICULAR TACHYCARDIA 12/10/2017 KEMAL SCOTT, JYOTI Patrick Ot I48.0 PAROXYSMAL ATRIAL FIBRILLATION 12/10/2017 SHANTELL JACKSON DO Ot Z12.31 ENCNTR SCREEN MAMMOGRAM FOR MALIGNANT NE 12/11/2017 ALLI RICKS S Ot V76.12 OTH SCREEN MAMMO-MALIGN NEOPLASM OF CYRUS 12/11/2017 ISABELLA EZEQUIEL, ANNIE K Ot 272.4 HYPERLIPIDEMIA NEC/NOS 12/11/2017 ISABELLA NIEVES, ANNIE K Ot 401.9 HYPERTENSION NOS 12/11/2017 ISABELLA NIEVES, ANNIE K Ot 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 12/11/2017 ISABELLA NIEVES, ANNIE K Ot 427.31 ATRIAL FIBRILLATION 12/11/2017 ISABELLA NIEVES, ANNIE K Ot 401.9 HYPERTENSION NOS 12/11/2017 ISABELLA NIEVES, ANNIE K Ot 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 12/11/2017 ISABELLA NIEVES, ANNIE K Ot 427.31 ATRIAL FIBRILLATION 12/11/2017 ALLI RICKS S Ot V76.12 OTH SCREEN MAMMO-MALIGN NEOPLASM OF CYRUS 12/11/2017 ALLI DO S Ot Z12.31 ENCNTR SCREEN MAMMOGRAM FOR MALIGNANT NE 12/11/2017 ALLI RICKS S Ot Z12.31 ENCNTR SCREEN MAMMOGRAM FOR MALIGNANT NE 12/11/2017 ISABELLA EZEQUIEL, ANNIE K Ot E78.2 MIXED HYPERLIPIDEMIA 12/11/2017 IASBELLA EZEQUIEL, ANNIE K Ot I10 ESSENTIAL (PRIMARY) HYPERTENSION 12/11/2017 NGUYỄN-MARIA DE JESUS NIEVES, ANNIE K Ot I47.1 SUPRAVENTRICULAR TACHYCARDIA 12/11/2017 ISABELLA EZEQUIEL, ANNIE K Ot I48.0 PAROXYSMAL ATRIAL FIBRILLATION 12/11/2017 KEMAL SCOTT, JYOTI Patrick Ot E78.2 MIXED HYPERLIPIDEMIA 12/11/2017 JYOTI SOMMER MD Ot I10 ESSENTIAL (PRIMARY) HYPERTENSION 12/11/2017 KEMAL SCOTT, JYOTI Patrick Ot I47.1 SUPRAVENTRICULAR TACHYCARDIA 12/11/2017 JYOTI SOMMER MD Ot I48.0 PAROXYSMAL ATRIAL FIBRILLATION 12/11/2017 SHNATELL JACKSON DO Ot Z12.31 ENCNTR SCREEN MAMMOGRAM FOR MALIGNANT NE 12/25/2017 JYOTI SOMMER MD Ot E78.2 MIXED HYPERLIPIDEMIA 12/25/2017 JYOTI SOMMER MD Ot I10 ESSENTIAL (PRIMARY) HYPERTENSION 12/25/2017 JYOTI SOMMER MD Ot I47.1 SUPRAVENTRICULAR TACHYCARDIA 12/25/2017 JYOTI SOMMER MD Ot I48.0 PAROXYSMAL ATRIAL FIBRILLATION 01/06/2018 Ot V76.12 OTH SCREEN MAMMO-MALIGN NEOPLASM OF CYRUS 01/18/2018 JYOTI SOMMER MD Ot E78.2 MIXED HYPERLIPIDEMIA 01/18/2018 JYOTI SOMMER MD Ot I10 ESSENTIAL (PRIMARY) HYPERTENSION 01/18/2018 JYOTI SOMMER MD Ot I47.1 SUPRAVENTRICULAR TACHYCARDIA 01/18/2018 JYOTI SOMMER MD Ot I48.0 PAROXYSMAL ATRIAL FIBRILLATION 07/06/2018 MICHAEL DESHPANDE MD Ot 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 07/06/2018 MICHAEL DESHPANDE MD Ot M47.26 OTHER SPONDYLOSIS WITH RADICULOPATHY, JOSE RAMON 07/06/2018 MICHAEL DESHPANDE MD Ot M51.16 INTERVERTEBRAL DISC DISORDERS W RADICULO 07/06/2018 MICHAEL DESHPANDE MD Ot M99.73 CONN TISS AND DISC STENOS OF INTVRT FORA 07/30/2018 MICHAEL DESHPANDE MD Ot 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 07/30/2018 MICHAEL DESHPANDE MD Ot M47.26 OTHER SPONDYLOSIS WITH RADICULOPATHY, JOSE RAMON 07/30/2018 MICHAEL DESHPANDE MD Ot M51.16 INTERVERTEBRAL DISC DISORDERS W RADICULO 07/30/2018 MICHAEL DESHPANDE MD Ot M99.73 CONN TISS AND DISC STENOS OF INTVRT FORA 11/05/2018 MICHAEL CARSON DO Ot V76.12 OTH SCREEN MAMMO-MALIGN NEOPLASM OF CYRUS 11/05/2018 ANNIE HOSKINS Ot 272.4 HYPERLIPIDEMIA NEC/NOS 11/05/2018 ANNIE HOSKINS Ot 401.9 HYPERTENSION NOS 11/05/2018 ANNIE HOSKINS Ot 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 11/05/2018 ANNIE HOSKINS Ot 427.31 ATRIAL FIBRILLATION 11/05/2018 ANNIE HOSKINS Ot 401.9 HYPERTENSION NOS 11/05/2018 ISABELLA NIEVES ANNIE K Ot 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 11/05/2018 ISABELLA NIEVES ANNIE K Ot 427.31 ATRIAL FIBRILLATION 11/05/2018 MICHAEL CARSON DO Ot V76.12 OTH SCREEN MAMMO-MALIGN NEOPLASM OF CYRUS 11/05/2018 MICHAEL CARSON DO S Ot Z12.31 ENCNTR SCREEN MAMMOGRAM FOR MALIGNANT NE 11/05/2018 MICHAEL CARSON DO S Ot Z12.31 ENCNTR SCREEN MAMMOGRAM FOR MALIGNANT NE 11/05/2018 ISABELLA NIEVES ANNIE K Ot E78.2 MIXED HYPERLIPIDEMIA 11/05/2018 ISABELLA NIEVES ANNIE K Ot I10 ESSENTIAL (PRIMARY) HYPERTENSION 11/05/2018 ISABELLA NIEVES ANNIE K Ot I47.1 SUPRAVENTRICULAR TACHYCARDIA 11/05/2018 ISABELLA NIEVES ANNIE K Ot I48.0 PAROXYSMAL ATRIAL FIBRILLATION 11/05/2018 JYOTI SOMMER MD Ot E78.2 MIXED HYPERLIPIDEMIA 11/05/2018 KEMAL SCOTT, JYOTI Patrick Ot I10 ESSENTIAL (PRIMARY) HYPERTENSION 11/05/2018 JYOTI SOMMER MD Ot I47.1 SUPRAVENTRICULAR TACHYCARDIA 11/05/2018 JYOTI SOMMER MD Ot I48.0 PAROXYSMAL ATRIAL FIBRILLATION 11/05/2018 SHANTELL JACKSON DO Ot Z12.31 ENCNTR SCREEN MAMMOGRAM FOR MALIGNANT NE 11/05/2018 MICHAEL DESHPANDE MD Ot 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 11/05/2018 MICHAEL DESHPANDE MD Ot M47.26 OTHER SPONDYLOSIS WITH RADICULOPATHY, JOSE RAMON 11/05/2018 MICHAEL DESHPANDE MD Ot M51.16 INTERVERTEBRAL DISC DISORDERS W RADICULO 11/05/2018 MICHAEL DESHPANDE MD Ot M99.73 CONN TISS AND DISC STENOS OF INTVRT FORA 11/05/2018 MICHAEL CARSON DO S Ot Z12.31 ENCNTR SCREEN MAMMOGRAM FOR MALIGNANT NE 11/26/2018 MICHAEL CARSON DO S Ot Z12.31 ENCNTR SCREEN MAMMOGRAM FOR MALIGNANT NE 02/15/2019 MICHAEL DESHPANDE MD Ot Z01.818 ENCOUNTER FOR OTHER PREPROCEDURAL EXAMIN 02/16/2019 JERAMY SCOTT, MICHAEL Gonzalez Ot Z01.818 ENCOUNTER FOR OTHER PREPROCEDURAL EXAMIN 02/21/2019 MICHAEL CARSON DO S Ot V76.12 OTH SCREEN MAMMO-MALIGN NEOPLASM OF CYRSU 02/21/2019 ISABELLA NIEVES, ANNIE K Ot 272.4 HYPERLIPIDEMIA NEC/NOS 02/21/2019 ISABELLA NIEVES, ANNIE K Ot 401.9 HYPERTENSION NOS 02/21/2019 ISABELLA NIEVES, ANNIE K Ot 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 02/21/2019 ISABELLA NIEVES, ANNIE K Ot 427.31 ATRIAL FIBRILLATION 02/21/2019 ISABELLA NIEVES, ANNIE K Ot 401.9 HYPERTENSION NOS 02/21/2019 ISABELLA NIEVES, ANNIE K Ot 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 02/21/2019 ISABELLA NIEVES, ANNIE K Ot 427.31 ATRIAL FIBRILLATION 02/21/2019 MICHAEL CARSON DO S Ot V76.12 OTH SCREEN MAMMO-MALIGN NEOPLASM OF CYURS 02/21/2019 MICHAEL CARSON DO S Ot Z12.31 ENCNTR SCREEN MAMMOGRAM FOR MALIGNANT NE 02/21/2019 MICHAEL CARSON DO S Ot Z12.31 ENCNTR SCREEN MAMMOGRAM FOR MALIGNANT NE 02/21/2019 ISABELLA NIEVES ANNIE K Ot E78.2 MIXED HYPERLIPIDEMIA 02/21/2019 ISABELLA NIEVES, ANNIE K Ot I10 ESSENTIAL (PRIMARY) HYPERTENSION 02/21/2019 ISABELLA NIEVES ANNIE K Ot I47.1 SUPRAVENTRICULAR TACHYCARDIA 02/21/2019 ISABELLA NIEVES, ANNIE K Ot I48.0 PAROXYSMAL ATRIAL FIBRILLATION 02/21/2019 KEMAL SCOTT, JYOTI Patrick Ot E78.2 MIXED HYPERLIPIDEMIA 02/21/2019 KEMAL SCOTT, JYOTI Patrick Ot I10 ESSENTIAL (PRIMARY) HYPERTENSION 02/21/2019 KEMAL SCOTT, JYOTI Patrick Ot I47.1 SUPRAVENTRICULAR TACHYCARDIA 02/21/2019 KEMAL SCOTT, JYOTI Patrick Ot I48.0 PAROXYSMAL ATRIAL FIBRILLATION 02/21/2019 SHANTELL JACKSON DO Ot Z12.31 ENCNTR SCREEN MAMMOGRAM FOR MALIGNANT NE 02/21/2019 JERAMY SCOTT, MICHAEL Gonzalez Ot 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 02/21/2019 MICHAEL DESHPANDE MD Ot M47.26 OTHER SPONDYLOSIS WITH RADICULOPATHY, JOSE RAMON 02/21/2019 MICHAEL DESHPANDE MD Ot M51.16 INTERVERTEBRAL DISC DISORDERS W RADICULO 02/21/2019 MICHAEL DESHPANDE MD Ot M99.73 CONN TISS AND DISC STENOS OF INTVRT FORA 02/21/2019 MICHAEL CARSON DO Ot Z12.31 ENCNTR SCREEN MAMMOGRAM FOR MALIGNANT NE Procedures There is no data. Results Test Result Range Methicillin resistant Staphylococcus aureus (MRSA) screening culture - 13:50 Methicillin resistant Staphylococcus aureus (MRSA) screening culture NEG NRG Methicillin resistant Staphylococcus aureus (MRSA) screening culture - 10:20 Methicillin resistant Staphylococcus aureus (MRSA) screening culture NEG NRG Encounters ACCT No. Visit Date/Time Discharge Status Pt. Type Provider Facility Loc./Unit Complaint [id number] 02/15/2019 09:41:00 02/15/2019 10:43:00 DIS Outpatient MICHAEL DESHPANDE MD [facility] PREOP TORN LEFT LATERAL MENISCUS [id number] 11/05/2018 08:18:00 11/05/2018 23:59:59 CLS Outpatient MICHAEL CARSON DO [facility] RAD SCREENING [id number] 06/10/2018 10:10:00 06/10/2018 23:59:59 CLS Outpatient MICHAEL DESHPANDE MD [facility] RAD LUMBAR RADICULOPATHY [id number] 05/24/2018 10:24:00 05/24/2018 23:59:59 CLS Preadmit MICHAEL DESHPANDE MD [facility] RAD LUMBAR RADICULOPATHY [id number] 12/02/2017 09:43:00 12/02/2017 13:30:00 DIS Outpatient PHILL VALENZUELA MD [facility] ENDO SCREENING [id number] 11/25/2017 05:37:00 11/25/2017 09:59:00 DIS Outpatient PHILL VALENZUELA MD [facility] PREOP COLONOSCOPY [id number] 11/23/2017 07:20:00 11/23/2017 23:59:59 CLS Outpatient JYOTI SOMMER MD [facility] CARD HTN I10 [id number] 11/02/2017 14:15:00 11/02/2017 23:59:59 CLS Outpatient SHANTELL JACKSON DO [facility] RAD Z12.31 SCREENING MAMMO [id number] 05/27/2017 10:40:00 05/27/2017 15:34:00 DIS Outpatient MICHAEL DESHPANDE MD [facility] SDC LEFT KNEE CHONDROMALACIA [id number] 05/21/2017 12:54:00 05/21/2017 14:00:00 DIS Outpatient MICHAEL DESHPANDE MD [facility] PREOP LEFT KNEE CHONDROMALACIA [id number] 03/24/2017 10:35:00 03/24/2017 23:59:59 CLS Outpatient ANNIE HOSKINS [facility] CARD HTN, HYPERLIPIDEMIA [id number] 10/20/2016 15:03:00 10/20/2016 23:59:59 CLS Outpatient MICHAEL CARSON DO [facility] RAD SCREENING [id number] 10/17/2015 15:32:00 10/17/2015 23:59:59 CLS Outpatient ALLI DO [place] [facility] RAD SCREENING [id number] 10/11/2014 10:45:00 10/11/2014 23:59:59 CLS Outpatient ANDREWPUMA DO [place] [facility] RAD SCREENING [id number] 05/15/2014 07:29:00 05/15/2014 23:59:59 CLS Outpatient ANNIE HOSKINS [facility] CARD AFIB,HTN,HLP ,PAT [id number] 05/11/2014 07:15:00 05/11/2014 23:59:59 CLS Outpatient ANNIE HOSKINS [facility] CARD AFIB,HTN, HLP [id number] 04/05/2014 14:52:00 04/06/2014 11:20:00 DIS Inpatient NIRMAL CISNEROS DO [facility] CSD QUICK AFIB [id number] 10/10/2013 08:54:00 10/10/2013 23:59:59 CLS Outpatient MICHAEL CARSON DO [facility] RAD SCREENING [id number] 02/23/2019 07:26:00 ACT Outpatient MICHAEL DESHPANDE MD [facility] SDC TORN LEFT LATERAL MENISCUS [id number] 10/20/2016 15:03:00 Document Registration [id number] 10/04/2012 09:18:00 Document Registration [id number] 10/03/2011 08:40:00 Document Registration
[2019-02-23] MEDS ORDERED: HYDR-3816 PO (08:25)
[2019-02-23] MEDS ORDERED: HYDROmorphone 2 MG/ML VIAL (DILAUDID) IV ONE (08:30)
[2019-02-23] MEDS ORDERED: ONDANSETRON 4 MG/2 ML (SDV) Z0FRAN IVP PRN (08:30)
--- NOTE | 2019-02-23 08:33 | Anesthesia-General Post-Op ---
General Patient Condition Mental Status/LOC: Same as Preop Cardiovascular: Satisfactory Nausea/Vomiting: Absent Respiratory: Satisfactory Pain: Controlled Complications: Absent Post Op Complications Complications None Follow Up Care/Instructions Patient Instructions None needed. Anesthesia/Patient Condition Patient Condition Patient is doing well, no complaints, stable vital signs, no apparent adverse anesthesia problems. No complications reported per nursing. ALO CASTAÑEDA CRNA Feb 23, 2019 08:33
--- NOTE | 2019-02-23 08:59 | OPERATIVE REPORT ---
DATE OF SERVICE: 02/23/2019 PREOPERATIVE DIAGNOSES: 1. Left knee lateral meniscus tear. 2. 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 POSTOPERATIVE DIAGNOSES: 1. Left knee lateral meniscus tear. 2. 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 3. Left knee medial meniscus tear. 4. Left knee chondromalacia of the medial femoral condyle. PROCEDURES: 1. Left knee arthroscopic partial lateral meniscectomy. 2. Left knee arthroscopic partial medial meniscectomy. 3. Left knee arthroscopic chondroplasty of the lateral femoral condyle. 4. Left knee arthroscopic chondroplasty of the medial femoral condyle. SURGEON: Klever Deshpande MD. MARKETING MANAGER HEALTH COMMUNICATIONS: Micheal Landeros, who assisted throughout the procedure and closed the incisions. ANESTHESIA: General endotracheal. TOURNIQUET TIME: Not applicable. ESTIMATED BLOOD LOSS: Minimal. DRAINS: None. COMPLICATIONS: None. POSTOPERATIVE PLANS: Routine arthroscopy protocol. The patient was transferred to the recovery room in awake and stable condition. 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 The patient was counseled that an arthroscopy could help with her mechanical symptoms and would not alleviate her arthritic symptoms. Due to functional impairment and failure to improve with conservative measures, the patient elected to proceed with surgical intervention. Examination under anesthesia revealed range of motion is 0/2/130 with negative Sia, negative anterior and posterior drawer. No varus valgus laxity and negative pivot shift. ARTHROSCOPIC FINDINGS: The patella and trochlea demonstrated diffuse grade II chondral changes with no unstable chondral flaps. The medial and lateral gutters were clear. The medial compartment demonstrated a flap tear of the anterior horn/body junction involving approximately 20% of the junction. There were grade II chondral flaps at the central portion of the femoral condyle in a 10 x 10 area. The ACL and PCL were intact. The lateral compartment demonstrated grade IV chondral loss on the tibial plateau and adjacent femoral condyle and a 10 x 30 area with surrounding grade IV chondral flaps at the periphery of the femoral condyle and a degenerative tear involving approximately 1/3 of the posterior horn of the lateral meniscus. DESCRIPTION OF PROCEDURE: After the risks and benefits of procedure were discussed and questions were answered, informed consent was signed and placed in the chart. The operative site was confirmed in the preoperative holding area initialed by the surgeon. The patient was then transferred to the operating room and after adequate levels of general endotracheal anesthetic were obtained, a timeout was called confirming the operative site. The left lower extremity was prepped and draped in the usual sterile fashion. The knee joint was injected with 60 mL of fluid. A standard inferolateral portal was placed with the arthroscope under direct visualization and inferior medial portal was created. The menisci and cruciates were carefully probed with the above findings noted. The unstable chondral flaps of the lateral femoral condyle were debrided with shaver back to a stable edge. The lateral meniscus tear was debrided with a shaver back to a stable edge. This was carefully probed. With no further tearing or instability noted, the scope was redirected into the medial compartment and the unstable chondral flaps on the medial femoral condyle were debrided with a shaver back to a stable edge and the flap tear at the anterior horn body junction was debrided with a shaver back to a stable edge. This was carefully probed. No further tearing or instability was noted. The knee was copiously irrigated. The port sites were closed with 4-0 nylon in a simple interrupted fashion. The knee was injected with Duramorph. Portal sites were infiltrated with plain Marcaine. A soft dressing was applied and the patient was transferred to the recovery room in awake and stable condition. Job ID: [id number] DocumentID: [id number] Dictated Date: 02/23/2019 08:29:35 Thermal Engineer Date: 02/23/2019 08:58:54 Dictated By: KLEVER DESHPANDE MD
[2019-02-23 09:20] VITALS: BP 124/83
[2019-02-23 09:50] VITALS: BP 130/67
[2019-02-23 10:16] VITALS: BP 130/67
[2019-02-23 10:20] VITALS: BP 142/75
--- NOTE | 2019-02-23 10:30 | Physical Therapy Ortho Eval ---
PT Orthopedic Evaluation Type of Surgery Knee Scope Torn L lateral mensicus; post repair. Prior Level of Function Current Living Status: Spouse Locomotion (Upon Admit): Independent Established Durable Medical Eq: Front Wheeled Walker Subjective Subjective Agrees to PT. Reports she has a walker at home. Entry Into Home: Stairs With Railing (3) Motor Control Motor Control: Motor Control WNL ROM ROM: WFL (except knee flexion left to 80 degrees) Strength Strength: WFL Transfer Transfers (B, C, W/C) (FIM): 5 (6 post visit) Gait Gait Assistive Device: FWW Right Lower Extremity: Right Weight Bearing Status RLE: Full Weight Bearing Left Lower Extremity: Left Weight Bearing Status LLE: Weight Bearing/Tolerated Gait (FIM): 5 (6 post visit) Distance (FIM): 3=150 ft Distance: 150 Gait Level of Assist: 5 (6 post visit) Summary/Comments Safe and steady gait with correct use of walker; up/down curb step x 2 SBA initially and mod indep post visit. Treatment Rendered Treatment: Therapeutic Exercises, Gait Train, Step Train, Issued Written HEP Exercise Instruction: Quad Sets, Straight Leg Raise, Heel Slides Assessment/Goals Goal Time Frame: 1 Visit Understands HEP: Yes Safe Ambulation: Yes Plan Treatment Plan: Discharge PT/Family Agrees to Plan: Yes Time Time In: 950 Time Out: 1012 Total Billed Treatment Time: 22 Billed Treatment Time visit EVL 22 CARY AGUILAR PT Feb 23, 2019 10:30
== END 2019-02-23 10:30 | disposition home or self-care (01) ==
LOC: SDC 07:26
PROVIDERS: ATTEND Orthopaedic Surgery
DX: M23.252 Derangement of posterior horn of lateral meniscus due to old tear or injury, left knee (principal); M23.212 Derangement of anterior horn of medial meniscus due to old tear or injury, left knee; M94.262 Chondromalacia, left knee; I10 Essential (primary) hypertension; E78.5 Hyperlipidemia, unspecified; I48.91 Unspecified atrial fibrillation; Z96.651 Presence of right artificial knee joint; Z79.899 Other long term (current) drug therapy; Z79.01 Long term (current) use of anticoagulants

== ENCOUNTER → 2019-06-29 | Outpatient (CLI) | payer MEDICARE, OTHER ==
[~2019-06-29] MED LIST changes: +HYDR-3816 PO
== END ==
LOC: CARD 10:58
PROVIDERS: ATTEND Physician Assistant
DX: I08.2 Rheumatic disorders of both aortic and tricuspid valves (principal); I10 Essential (primary) hypertension; E78.2 Mixed hyperlipidemia; I48.0 Paroxysmal atrial fibrillation; I47.1 Supraventricular tachycardia
CPT/HCPCS: 93306

== ENCOUNTER → 2019-11-15 | Outpatient (CLI) | payer MEDICARE, OTHER ==
--- NOTE | 2019-11-15 16:16 | Diagnostic Imaging Report ---
Indication: Routine screening. Comparison is made with prior mammograms 11/05/2018 and 11/02/2017. 2-D and 3-D bilateral screening mammography was performed with CAD. Both breasts are heterogeneously dense, limiting the sensitivity of mammography. Benign nodule upper outer left breast is stable. Overall parenchymal pattern is stable. No spiculated mass or malignant appearing microcalcifications are seen. Axillae are unremarkable. IMPRESSION: BI-RADS Category 2. No mammographic features suspicious for malignancy are identified. ACR BI-RADS Category 2: Benign findings. Result letter will be mailed to the patient. Note: At least 10% of breast cancer is not imaged by mammography. Dictated by: Dictated on workstation # [id number]
== END ==
LOC: RAD 10:31
PROVIDERS: ATTEND Obstetrics & Gynecology
DX: Z12.31 Encounter for screening mammogram for malignant neoplasm of breast (principal)
CPT/HCPCS: 77067

== ENCOUNTER → 2020-09-20 | Outpatient (CLI) | payer MEDICARE, OTHER ==
[~2020-09-20] MED LIST changes: -HYDR-3816 PO; +SIMV20TA26 PO; -SIMV20TA3 PO
== END ==
LOC: LABNPT 06:11
PROVIDERS: ATTEND Physical Medicine & Rehabilitation
DX: Z01.812 Encounter for preprocedural laboratory examination (principal); Z20.828 Contact with and (suspected) exposure to other viral communicable diseases
CPT/HCPCS: 87635

== ENCOUNTER → 2021-02-21 | Outpatient (CLI) | payer MEDICARE, OTHER ==
--- NOTE | 2021-02-21 13:19 | Diagnostic Imaging Report ---
INDICATION: Routine screening. COMPARISON is made with prior mammograms from 11/15/2019 and 11/05/2018. 2-D and 3-D bilateral screening mammography was performed with CAD. Both breasts are heterogeneously dense, limiting the sensitivity of mammography. There are benign nodules in the left breast. There are benign calcifications. No spiculated mass or malignant appearing microcalcifications are seen. Axillae are unremarkable. IMPRESSION: BI-RADS Category 2 No mammographic features suspicious for malignancy are identified. Dictated by: Dictated on workstation # [id number]
== END ==
LOC: RAD 10:49
PROVIDERS: ATTEND Nurse Practitioner Women's Health
DX: Z12.31 Encounter for screening mammogram for malignant neoplasm of breast (principal)
CPT/HCPCS: 77063; 77067

== ENCOUNTER 2021-05-09 13:50 | Emergency (ER) | payer MEDICARE, OTHER ==
[~2021-05-09] VITALS: Ht 175.2 cm; Wt 85.2 kg
[2021-05-09] MEDS ORDERED: TETANUS,DIPTH,PERTUSS P/F (BOOSTRIX) 0.5 ML VIAL IM ONE (14:15)
[2021-05-09] MEDS ORDERED: LIDOCAINE 1% INJ 20 ML 20 ML VIAL INJ ONE (14:15)
--- NOTE | 2021-05-09 14:21 | ED Lower Extremity ---
General Chief Complaint: Laceration Stated Complaint: HEAD LAC FELL Nursing Triage Note: PATIENT HAD A FALL AT HOME AROUND 1330 AND CUT HER FOREHEAD OPEN WITH NOTABLE SWELLING. BLEEDING CONTROLLED AT THIS TIME. DENIES LOC. DENIES HURT ANYWHERE ELSE. ON ELIQUIS Nursing Sepsis Screen: No Definite Risk Source: patient Exam Limitations: no limitations (RALF BISWAS APRN) History of Present Illness Date Seen by Provider: May 09, 2021 Time Seen by Provider: 14:00 Initial Comments To ER with a fall at home at about 130 and hit the right side of her forehead. She has a laceration to this location. She is on Eliquis for history of atrial fibrillation. Denies any loss of consciousness headache nausea vomiting neck pain or other injury. Tetanus is not up-to-date. Onset: just prior to arrival Severity: moderate Method of Injury: fell (RALF BISWAS APRN) Allergies and Home Medications Allergies Coded Allergies: No Known Drug Allergies (Verified , 02/15/19) Home Medications Apixaban 5 Mg Tablet, 5 MG PO BID, (Reported) Cranberry Conc/Ascorbic Acid 1 Each Capsule, 1 EACH PO DAILY, (Reported) Diltiazem HCl 120 Mg Cap.er.24h, 120 MG PO DAILY, (Reported) Estrogens, Conjugated 0.3 Mg Tablet, 0.3 MG PO DAILY, (Reported) Hydrocodone Bit/Acetaminophen 1 Each Tablet, 1 TAB PO Q4H Prescribed by: IFTIKHAR HERRERA on 02/23/19 0825 Metoprolol Succinate 50 Mg Tab.er.24h, 50 MG PO BID, (Reported) Multivitamin 1 Each Capsule, 1 EACH PO DAILY, (Reported) Simvastatin 20 Mg Tablet, 20 MG PO HS, (Reported) Patient Home Medication List Home Medication List Reviewed: Yes (RALF BISWAS APRN) Review of Systems Constitutional: see HPI EENTM: see HPI Respiratory: no symptoms reported Cardiovascular: no symptoms reported Genitourinary: no symptoms reported Musculoskeletal: no symptoms reported Skin: no symptoms reported Psychiatric/Neurological: No Symptoms Reported (RALF BISWAS APRN) Past Hatodzs-Uowvwn-Vdedaw Hx Patient Social History Alcohol Use: Denies Use 2nd Hand Smoke Exposure: Yes Recent Infectious Disease Expo: No Recent Hopitalizations: No (RALF BISWAS APRN) Immunizations Up To Date Tetanus Booster (TDap): More than 5yrs Date of Pneumonia Vaccine: Apr 24, 2014 Date of Influenza Vaccine: Aug 23, 2018 (RALF BISWAS APRN) Seasonal Allergies Seasonal Allergies: No (RALF BISWAS APRN) Past Medical History Surgeries: Yes (CYST REMOVED FROM LEFT WRIST, R TKR, L RCR, L KNEE SCOPE) Hysterectomy Respiratory: No Cardiac: Yes Atrial Fibrillation, High Cholesterol, Hypertension, Irregular Heartbeat Neurological: No Reproductive Disorders: No 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 Sexually Transmitted Disease: No HIV/AIDS: No Genitourinary: No Gastrointestinal: No Gastroesophageal Reflux Musculoskeletal: Yes Arthritis Endocrine: No HEENT: Yes (GLASSES) Loss of Vision: Bilateral Hearing Impairment: Hard of Hearing Cancer: No Psychosocial: No Integumentary: No Blood Disorders: No Adverse Reaction/Blood Tranf: No (N/A) (RALF BISWAS APRN) Family Medical History Cancer 19 FATHER (COLON) Family history: Cardiovascular disease 19 FATHER 19 MOTHER G8 BROTHER G8 BROTHER G8 BROTHER G8 BROTHER G8 BROTHER G8 BROTHER G8 SISTER G8 SISTER Family history: Diabetes mellitus 19 MOTHER G8 SISTER Physical Exam Vital Signs Vital Signs - First Documented 05/09/21 13:50 Temp 35.8 Pulse 102 Resp 20 B/P (MAP) 141/82 (101) Pulse Ox 94 (OBDULIA HAMMOND MD) Vital Signs Capillary Refill : Less Than 3 Seconds (RALF BISWAS APRN) Height, Weight, BMI Height: 5'9.00" Weight: 225lbs. 3.0oz. 102.930428ze; 27.00 BMI Method: General Appearance: WD/WN, no apparent distress Respiratory: no respiratory distress, no accessory muscle use Hips: bilateral hip non-tender, bilateral hip normal inspection, bilateral hip normal range of motion Legs: bilateral leg non-tender, bilateral leg normal inspection, bilateral leg normal range of motion Knees: bilateral knee non-tender, bilateral knee normal inspection, bilateral knee normal range of motion Ankles: bilateral ankle non-tender, bilateral ankle normal inspection, bilateral ankle normal range of motion Feet: bilateral foot non-tender, bilateral foot normal inspection, bilateral foot normal range of motion Neurologic/Psychiatric: alert, normal mood/affect, oriented x 3 Skin: normal color, warm/dry There is a hematoma over the lateral aspect of the right eyebrow with a laceration within the center. Minimal bleeding at this time. (RALF BISWAS APRN) Progress/Results/Core Measures Results/Orders Medications Given in ED Current Medications Medications Dose Ordered Sig/Rene Route Start Time Stop Time Status Last Admin Dose Admin Diphtheria/ Tetanus/Acell Pertussis 0.5 ml ONCE ONCE IM 05/09/21 14:15 05/09/21 14:16 DC 05/09/21 14:27 0.5 ML Lidocaine HCl 20 ml ONCE ONCE INJ 05/09/21 14:15 05/09/21 14:16 DC 05/09/21 14:26 20 ML (OBDULIA HAMMOND MD) Vital Signs/I&O 05/09/21 05/09/21 13:50 15:25 Temp 35.8 Pulse 102 91 Resp 20 18 B/P (MAP) 141/82 (101) 152/77 Pulse Ox 94 98 (OBDULIA HAMMOND MD) Blood Pressure Mean: 101 Diagnostic Imaging Diagonstic Imaging: Xray Comments NAME: BENNY BAJWA [facility] REC#: [id number] PT STATUS: REG ER : 1935 PHYSICIAN: RALF BISWAS APRN ADMIT DATE: 05/09/21/ER Signed Date of Exam:05/09/21 CT HEAD/CERVICAL SPINE WO PROCEDURE: CT head and CT cervical spine without contrast. TECHNIQUE: Multiple contiguous axial images were obtained through the brain and cervical spine without the use of intravenous contrast. Sagittal and coronal reformations through the cervical spine were then performed. Auto Exposure Controls were utilized during the CT exam to meet ALARA standards for radiation dose reduction. INDICATION: Fall with scalp laceration. COMPARISON: None available. FINDINGS: Head: No intracranial hyperdense hemorrhage or space-occupying mass. No hydrocephalus or midline shift. Global atrophy is present. Minimal periventricular and deep white matter hypoattenuation is most compatible with chronic microvascular ischemic disease. Basilar cisterns are widely patent. No skull fracture. Right supraorbital scalp hematoma. No fracture within the orbits. Nasal bones are intact. Zygomatic arches are intact as well. Cervical spine: No acute fracture or traumatic malalignment in the cervical spine. Multilevel facet osteoarthritis and uncovertebral joint hypertrophy. This is greatest on the left at C3-C4 and causes severe spinal stenosis. No cervical lymphadenopathy. Lung apices are clear. IMPRESSION: 1. No acute intracranial hemorrhage or skull fracture. 2. Right periorbital hematoma. No fracture of the orbits. 3. No acute fracture or traumatic malalignment cervical spine. Dictated by: Dictated on workstation # [id number] Dict: 05/09/21 1452 Trans: 05/09/21 1508 CV [id number] Interpreted by: DOT GREGORY MD Electronically signed by: DOT GREGORY MD 05/09/21 1506 (RALF BISWAS APRN) Departure Communication (Admissions) 1438-procedure note: The 1 cm laceration to the right side of the forehead just above the eyebrow is down to the subcutaneous tissue. This was anesthetized with 1 mL of 1% lidocaine without epinephrine. Scrubbed with chlorhexidine/saline solution, closed with one continuous suture size 5-0 Ethilon. (RALF BISWAS APRN) Impression Primary Impression: Forehead laceration Additional Impression: Hematoma Disposition: 01 HOME, SELF-CARE Condition: Stable Departure-Patient Inst. Decision time for Depature: 14:20 (RALF BISWAS APRN) Referrals: NIRMAL CISNEROS DO (PCP/Family) Primary Care Physician Patient Instructions: Laceration Repair With Stitches ED Add. Discharge Instructions: Return to ER in about 5 to 6 days to have the stitches removed. You can shower letting water run over the starting tonight. All discharge instructions reviewed with patient and/or family. Voiced understanding. Attending physician note: I was physically present in the emergency department during the care of this patient as the attending physician on duty, but I was not directly involved in the care or decision-making for this patient. (OBDULIA HAMMOND MD) RALF BISWAS APRN May 09, 2021 14:21 OBDULIA HAMMOND MD May 09, 2021 19:33
--- NOTE | 2021-05-09 15:04 | Diagnostic Imaging Report ---
PROCEDURE: CT head and CT cervical spine without contrast. TECHNIQUE: Multiple contiguous axial images were obtained through the brain and cervical spine without the use of intravenous contrast. Sagittal and coronal reformations through the cervical spine were then performed. Auto Exposure Controls were utilized during the CT exam to meet ALARA standards for radiation dose reduction. INDICATION: Fall with scalp laceration. COMPARISON: None available. FINDINGS: Head: No intracranial hyperdense hemorrhage or space-occupying mass. No hydrocephalus or midline shift. Global atrophy is present. Minimal periventricular and deep white matter hypoattenuation is most compatible with chronic microvascular ischemic disease. Basilar cisterns are widely patent. No skull fracture. Right supraorbital scalp hematoma. No fracture within the orbits. Nasal bones are intact. Zygomatic arches are intact as well. Cervical spine: No acute fracture or traumatic malalignment in the cervical spine. Multilevel facet osteoarthritis and uncovertebral joint hypertrophy. This is greatest on the left at C3-C4 and causes severe spinal stenosis. No cervical lymphadenopathy. Lung apices are clear. IMPRESSION: 1. No acute intracranial hemorrhage or skull fracture. 2. Right periorbital hematoma. No fracture of the orbits. 3. No acute fracture or traumatic malalignment cervical spine. Dictated by: Dictated on workstation # [id number]
[2021-05-09 15:25] VITALS: BP 152/77
== END 2021-05-09 15:25 | disposition home or self-care (01) ==
LOC: EDUNIT# 13:50 → ER 13:51
DX: S01.81XA Laceration without foreign body of other part of head, initial encounter (principal); I10 Essential (primary) hypertension; I48.91 Unspecified atrial fibrillation; E78.00 Pure hypercholesterolemia, unspecified; Z77.22 Contact with and (suspected) exposure to environmental tobacco smoke (acute) (chronic); Z23 Encounter for immunization; Z79.01 Long term (current) use of anticoagulants; Z79.899 Other long term (current) drug therapy; W22.8XXA Striking against or struck by other objects, initial encounter; Y92.009 Unspecified place in unspecified non-institutional (private) residence as the place of occurrence of the external cause
CPT/HCPCS: 12011; 70450; 72125; 90715

== ENCOUNTER 2021-05-15 13:12 | Emergency (ER) | payer MEDICARE, OTHER ==
[~2021-05-15] VITALS: Ht 175 cm; Wt 85.0 kg
[2021-05-15 13:19] VITALS: BP 148/81
--- NOTE | 2021-05-15 13:32 | ED Suture Removal/Wound Check ---
Suture/Wound Re-check Suture Removal/Wound Recheck : Progress I compared the size of the hematoma currently to the size of the hematoma on CT scan. It is perhaps slightly larger. Patient continued to take Eliquis without missing any doses after the injury. Because the hematoma still tight and bulging at the site of sutures, I recommend that she leave the sutures in another 2 or 3 days. Physical Exam Vital Signs Vital Signs - First Documented 05/15/21 13:19 Temp 36.6 Pulse 84 Resp 18 B/P (MAP) 148/81 Pulse Ox 98 Capillary Refill : General Appearance: no apparent distress HEENT: PERRL/EOMI, other (Large hematoma beneath the right brow. Intact suture in a well-healing laceration over the brow. No active external bleeding.) Departure Impression Primary Impression: Hematoma Additional Impressions: Facial laceration Qualified Codes: S01.81XD - Laceration without foreign body of other part of head, subsequent encounter Anticoagulated Disposition: 01 HOME, SELF-CARE Condition: Stable Departure-Patient Inst. Referrals: NIRMAL CISNEROS DO (PCP) Primary Care Physician Patient Instructions: SUTURE REMOVAL-UNCOMPLICATED OBDULIA HAMMOND MD May 15, 2021 13:32
== END 2021-05-15 13:25 | disposition home or self-care (01) ==
LOC: EDUNIT# 13:12 → ER 13:14
DX: Z48.00 Encounter for change or removal of nonsurgical wound dressing (principal)
CPT/HCPCS: 99281

== ENCOUNTER 2021-05-18 11:12 | Emergency (ER) | payer MEDICARE, OTHER ==
[~2021-05-18] VITALS: Ht 165 cm; Wt 77.0 kg
[2021-05-18 11:24] VITALS: BP 139/78
== END 2021-05-18 11:44 | disposition home or self-care (01) ==
LOC: EDUNIT# 11:12 → ER 11:13
DX: Z48.02 Encounter for removal of sutures (principal)